=== PATIENT | female | born 1985 | race Caucasian/White ===

== ENCOUNTER → 2017-05-07 | Outpatient (CLI) | payer OTHER, MEDICAID ==
[~2017-05-07] MED LIST: AUGM875T PO; MELO15TA2 PO; MOME17I; SULF400T PO; TRI-TAB PO; [UNRECOGNIZED DRUG - CODE]
--- NOTE | 2017-05-08 17:45 | MR ---
cc: RUFINO JOY DATE 05/08/17 PULMONARY FUNCTION STUDY Spirometry with a force vital capacity of 2.8 liters, FEV-1 of 2.7 liter, ratio 86%. Slow vital capacity 62% of unpredicted. ___ 85% of predicted. Diffusion capacity 78% of predicted normally related to al IMPRESSION No gross obstructive or restrictive airway disease, mild reduction in diffusion capacity normally related to alveolar vollume. MD RALF Sweet/ /3:18 PM /5:15 PM
== END ==
LOC: HRSP 13:06
PROVIDERS: ATTEND Internal Medicine Sleep Medicine
DX: R06.89 Other abnormalities of breathing (principal)
CPT/HCPCS: 94060; 94726; 94729